=== PATIENT | female | born 1930 | race Caucasian/White ===

== ENCOUNTER 2019-05-17 10:04 | Inpatient (IN) ==
[2019-05-17] MEDS ORDERED: POLYETHYLENE GLYCOL POWDER 17 GM PACK PO PRN (13:21)
[2019-05-17 13:23] LABS: Basophils % 0.1 % (0.0-0.8); Hematocrit 37.3 VOL% (35.7-47.0); Hemoglobin 11.6 GM/DL (12.0-16.0); Immature Granulocytes % 0.7 %; Lymphocytes # 1.3 10*3/uL (1.4-4.0); Lymphocytes % 9.1 % (21.3-54.2); Mean Corpuscular HGB Conc 31.1 GM/DL (32-36); Mean Corpuscular Volume 97.9 FL (87-102); Mean Platelet Volume 12.3 FL (9.6-12.0); Monocytes % 6.3 % (1.7-12.7); Neutrophils % 83.8 % (38.7-73.9); Platelet Count 333 T/CUMM (130-400); Red Blood Count 3.81 MC/CUMM (3.8-5.5); Red Cell Distribution Width 13.2 % (9.3-17.3)
[2019-05-17 13:44] LABS: Albumin 3.1 G/DL (3.4-5.0); Bilirubin,Total 0.4 MG/DL (0.2-1.0); Calcium 9.8 MG/DL (8.5-10.1); Osmolality,Calculated 298.6 MOS/KG (273-304); Total Protein 8.6 G/DL (6.4-8.3)
[2019-05-17 14:08] LABS: ABG Base Excess 6.8 MMOL/L (-2.5-2.5); ABG HCO3 30.6 MMOL/L (20-26); ABG Oxygen Saturation 94.3 % (95-100); ABG PCO2 46.1 MM HG (35-48); ABG PH 7.448 (7.35-7.45); ABG PO2 69.6 MM HG (80-95); ABG TCO2 28.3 MMOL/L (23-27); Allen Test Positive; Pt O2 Delivery Device Venturi Mask
[2019-05-17] MEDS ORDERED: ALBUTEROL/IPRATROPIUM 3 ML NEB RESP TX SCH (15:00)
[2019-05-17] MEDS ORDERED: ALBUTEROL/IPRATROPIUM 3 ML NEB RESP TX PRN (15:03)
[2019-05-17] MEDS: RANITIDINE 150 MG TABLET PO SCH ×2 (15:05→21:32)
[2019-05-17] MEDS ORDERED: cefTRIAXone 1,000 MG in SYRINGE 1 EACH IV SCH (15:30)
[2019-05-17] MEDS ORDERED: LACTATED RINGERS 1,000 ML IV SCH (16:30)
[2019-05-17] MEDS: AZITHROMYCIN INJ 500 MG in SODIUM CHLORIDE 0.9% 250 ML IV SCH (16:41)
[2019-05-17 17:18] LABS: Apearance,Urine Slightly Hazy (Clear); Bilirubin,Urine Negative (Negative); Blood, Urine Moderate mg/dL (Negative); Glucose,Urine (UA) Negative (Negative); Hyaline Casts,Urine 14 /LPF (0-3); Ketones,Urine Negative (Negative); Mucus,Urine Occasional /LPF (Occasional); Nitrite,Urine Negative (Negative); Protein,Urine 30 MG/DL; RBC,Urine 5 /HPF (0-4); Squamous Epithelial Cell,Urine Occasional /HPF (0-10); Urine Color Yellow (Yellow); Urine Specific Gravity 1.011 (1.001-1.035); Urine Urobilinogen < 2.0 EU/DL (0.2-1.0)
[2019-05-17] MEDS ORDERED: VANCOMYCIN INJ 750 MG in SODIUM CHLORIDE 0.9% 250 ML IV SCH (18:00)
[2019-05-17] MEDS: MEROPENEM 500 MG in SODIUM CHLORIDE 0.9% 100 ML IV SCH (18:18)
[2019-05-17] MEDS: ALBUTEROL/IPRATROPIUM 3 ML NEB RESP TX SCH (20:42)
[2019-05-17] MEDS: carvediloL 12.5 MG TABLET PO SCH (21:31)
[2019-05-17] MEDS: POLYCARBOPHIL 625 MG TABLET PO SCH (21:32)
[2019-05-17] MEDS: LATANOPROST 0.005% OPH SOLN 2.5 ML BOTTLE BOTH EYES SCH (21:32)
[2019-05-18] MEDS: ALBUTEROL/IPRATROPIUM 3 ML NEB RESP TX SCH ×4 (00:05→20:54)
[2019-05-18] MEDS: ACETYLCYSTEINE 20% 800 MG/4 ML VIAL RESP TX SCH ×3 (00:05→14:38)
[2019-05-18] MEDS: MEROPENEM 500 MG in SODIUM CHLORIDE 0.9% 100 ML IV SCH ×3 (01:52→17:55)
[2019-05-18 04:24] LABS: ABG Base Excess 7.3 MMOL/L (-2.5-2.5); ABG HCO3 31.1 MMOL/L (20-26); ABG Oxygen Saturation 95.8 % (95-100); ABG PH 7.395 (7.35-7.45); ABG PO2 80.8 MM HG (80-95); ABG TCO2 30.6 MMOL/L (23-27); Allen Test Positive; Pt O2 Delivery Device Venturi Mask
[2019-05-18 06:23] LABS: Basophils % 0.2 % (0.0-0.8); Eosinophils # 0.2 10*3/uL (0.0-0.87); Eosinophils % 1.7 % (0.00-10.9); Hematocrit 31.9 VOL% (35.7-47.0); Hemoglobin 9.9 GM/DL (12.0-16.0); Immature Granulocytes % 0.8 %; Lymphocytes # 1.1 10*3/uL (1.4-4.0); Lymphocytes % 8.6 % (21.3-54.2); Mean Corpuscular Volume 98.5 FL (87-102); Mean Platelet Volume 12.6 FL (9.6-12.0); Monocytes % 5.8 % (1.7-12.7); Neutrophils % 82.9 % (38.7-73.9); Platelet Count 276 T/CUMM (130-400); Red Blood Count 3.24 MC/CUMM (3.8-5.5); Red Cell Distribution Width 13.2 % (9.3-17.3); White Blood Count 12.7 T/CUMM (4-12)
[2019-05-18 06:51] LABS: Alanine Aminotransferase 39 U/L (13-56); Albumin 2.5 G/DL (3.4-5.0); Alkaline Phosphatase 69 U/L (45-117); Aspartate Amino Transferase 22 U/L (0-37); Bilirubin,Total < 0.39 MG/DL (0.2-1.0); Blood Urea Nitrogen 24 MG/DL (7-18); Calcium 9.1 MG/DL (8.5-10.1); Estimated Glom Filtration Rate 65 ML/MIN; Glucose 124 MG/DL (74-106); Osmolality,Calculated 300.1 MOS/KG (273-304); Total Protein 7.1 G/DL (6.4-8.3)
[2019-05-18] MEDS ORDERED: FENOFIBRATE 145 MG TABLET PO SCH (09:00)
[2019-05-18] MEDS ORDERED: MEMANTINE 5 MG TABLET PO SCH (09:00)
[2019-05-18] MEDS ORDERED: CLOPIDOGREL 75 MG TABLET PO SCH (09:00)
[2019-05-18] MEDS ORDERED: POTASSIUM CHLORIDE 20 MEQ TABLET PO SCH (09:00)
[2019-05-18] MEDS ORDERED: ASPIRIN EC 81 MG TABLET PO SCH (09:00)
[2019-05-18] MEDS ORDERED: FUROSEMIDE 40 MG/4 ML VIAL IV SCH (09:00)
[2019-05-18] MEDS: DEXTROSE 5% 1,000 ML IV SCH ×3 (11:56→23:36)
[2019-05-18] MEDS: POLYCARBOPHIL 625 MG TABLET PO SCH (15:50)
[2019-05-18] MEDS: carvediloL 12.5 MG TABLET PO SCH (15:50)
[2019-05-18] MEDS: PEG PROPYLENE GLYCOL BOTH EYES SCH (15:51)
[2019-05-18] MEDS: RANITIDINE 150 MG TABLET PO SCH (15:51)
[2019-05-18] MEDS: AZITHROMYCIN INJ 500 MG in SODIUM CHLORIDE 0.9% 250 ML IV SCH (16:28)
[2019-05-18] MEDS ORDERED: POTASSIUM CHLORIDE RIDER 10 MEQ in PREMIX 1 EACH IV PRN (17:28)
[2019-05-18] MEDS ORDERED: ENOXAPARIN 60 MG/0.6 ML SYRINGE SUBCUT SCH (17:30)
[2019-05-18] MEDS: METOPROLOL TARTRATE 5 MG/5 ML VIAL IV SCH ×2 (17:56→23:43)
[2019-05-18] MEDS: VANCOMYCIN INJ 750 MG in SODIUM CHLORIDE 0.9% 250 ML IV SCH (18:58)
[2019-05-18] MEDS: LATANOPROST 0.005% OPH SOLN 2.5 ML BOTTLE BOTH EYES SCH (21:16)
[2019-05-19] MEDS: ALBUTEROL/IPRATROPIUM 3 ML NEB RESP TX SCH ×4 (00:39→20:30)
[2019-05-19] MEDS: ACETYLCYSTEINE 20% 800 MG/4 ML VIAL RESP TX SCH ×4 (00:39→15:25)
[2019-05-19] MEDS: MEROPENEM 500 MG in SODIUM CHLORIDE 0.9% 100 ML IV SCH ×3 (01:59→18:35)
[2019-05-19 04:51] LABS: ABG Base Excess 9.6 MMOL/L (-2.5-2.5); ABG HCO3 33.2 MMOL/L (20-26); ABG Oxygen Saturation 92.5 % (95-100); ABG PCO2 48.4 MM HG (35-48); ABG PH 7.464 (7.35-7.45); ABG PO2 62.8 MM HG (80-95); ABG TCO2 31.5 MMOL/L (23-27); Allen Test Positive; Pt O2 Delivery Device Venturi Mask
[2019-05-19 05:13] LABS: Apearance,Urine Slightly Hazy (Clear); Bilirubin,Urine Negative (Negative); Blood, Urine Large mg/dL (Negative); Glucose,Urine (UA) 50 mg/dL (Negative); Ketones,Urine Negative (Negative); Mucus,Urine Occasional /LPF (Occasional); Nitrite,Urine Negative (Negative); Protein,Urine 100 MG/DL; RBC,Urine 4789 /HPF (0-4); Urine Color Red (Yellow); Urine Specific Gravity 1.017 (1.001-1.035)
[2019-05-19 05:15] LABS: Basophils # 0.1 10*3/uL (0.0-0.2); Basophils % 0.7 % (0.0-0.8); Eosinophils # 0.5 10*3/uL (0.0-0.87); Hematocrit 32.8 VOL% (35.7-47.0); Immature Granulocytes Absolute 0.09 #; Lymphocytes # 1.4 10*3/uL (1.4-4.0); Lymphocytes % 15.3 % (21.3-54.2); Mean Corpuscular HGB Conc 30.5 GM/DL (32-36); Mean Corpuscular Volume 99.4 FL (87-102); Mean Platelet Volume 11.9 FL (9.6-12.0); Monocytes % 7.8 % (1.7-12.7); Neutrophils % 70.2 % (38.7-73.9); Platelet Count 311 T/CUMM (130-400); Red Cell Distribution Width 13.1 % (9.3-17.3); White Blood Count 8.9 T/CUMM (4-12)
[2019-05-19 05:40] LABS: Bilirubin,Total 0.8 MG/DL (0.2-1.0); Calcium 8.6 MG/DL (8.5-10.1); Osmolality,Calculated 281.5 MOS/KG (273-304); Total Protein 7.1 G/DL (6.4-8.3)
[2019-05-19] MEDS: METOPROLOL TARTRATE 5 MG/5 ML VIAL IV SCH ×3 (06:03→18:14)
[2019-05-19 06:16] LABS: Platelet Estimate Normal
[2019-05-19 06:17] LABS: Anisocytosis 1+; Spherocytes 1+
[2019-05-19] MEDS: PEG PROPYLENE GLYCOL BOTH EYES SCH (09:34)
[2019-05-19] MEDS: PANTOPRAZOLE 40 MG VIAL IV SCH (09:35)
[2019-05-19] MEDS: DEXTROSE 5% 1,000 ML IV SCH ×2 (09:47→22:44)
[2019-05-19] MEDS: AZITHROMYCIN INJ 500 MG in SODIUM CHLORIDE 0.9% 250 ML IV SCH (16:30)
[2019-05-19] MEDS: VANCOMYCIN INJ 750 MG in SODIUM CHLORIDE 0.9% 250 ML IV SCH (18:26)
[2019-05-19] MEDS: LATANOPROST 0.005% OPH SOLN 2.5 ML BOTTLE BOTH EYES SCH (20:32)
[2019-05-19] MEDS ORDERED: VANCOMYCIN INJ 750 MG in SODIUM CHLORIDE 0.9% 250 ML IV SCH (21:00)
[2019-05-20] MEDS: ALBUTEROL/IPRATROPIUM 3 ML NEB RESP TX SCH ×4 (00:45→18:42)
[2019-05-20] MEDS: ACETYLCYSTEINE 20% 800 MG/4 ML VIAL RESP TX SCH ×4 (00:45→18:42)
[2019-05-20] MEDS: METOPROLOL TARTRATE 5 MG/5 ML VIAL IV SCH ×3 (01:25→12:35)
[2019-05-20] MEDS: MEROPENEM 500 MG in SODIUM CHLORIDE 0.9% 100 ML IV SCH ×3 (02:08→17:53)
[2019-05-20 04:34] LABS: ABG Base Excess 6.9 MMOL/L (-2.5-2.5); ABG HCO3 31.5 MMOL/L (20-26); ABG PCO2 44.9 MM HG (35-48); ABG PH 7.464 (7.35-7.45); ABG TCO2 32.9 MMOL/L (23-27); Allen Test Positive; Pt O2 Delivery Device Venturi Mask
[2019-05-20] MEDS: PANTOPRAZOLE 40 MG VIAL IV SCH (09:17)
[2019-05-20] MEDS: DEXTROSE 5% 1,000 ML IV SCH ×2 (09:21→21:44)
[2019-05-20] MEDS: PEG PROPYLENE GLYCOL BOTH EYES SCH (09:24)
[2019-05-20] MEDS ORDERED: hydrALAZINE 20 MG/1 ML VIAL IV PRN (16:13)
[2019-05-20] MEDS: AZITHROMYCIN INJ 500 MG in SODIUM CHLORIDE 0.9% 250 ML IV SCH (16:48)
[2019-05-20] MEDS: carvediloL 12.5 MG TABLET PO SCH (21:03)
[2019-05-20] MEDS: LATANOPROST 0.005% OPH SOLN 2.5 ML BOTTLE BOTH EYES SCH (21:04)
[2019-05-21] MEDS: ALBUTEROL/IPRATROPIUM 3 ML NEB RESP TX SCH ×3 (00:48→13:39)
[2019-05-21] MEDS: MEROPENEM 500 MG in SODIUM CHLORIDE 0.9% 100 ML IV SCH (01:35)
[2019-05-21 06:02] LABS: Basophils # 0.1 10*3/uL (0.0-0.2); Basophils % 0.5 % (0.0-0.8); Eosinophils # 0.3 10*3/uL (0.0-0.87); Eosinophils % 2.8 % (0.00-10.9); Hematocrit 36.4 VOL% (35.7-47.0); Hemoglobin 11.8 GM/DL (12.0-16.0); Immature Granulocytes Absolute 0.32 #; Lymphocytes # 1.5 10*3/uL (1.4-4.0); Lymphocytes % 14.2 % (21.3-54.2); Mean Corpuscular HGB Conc 32.4 GM/DL (32-36); Mean Corpuscular Volume 94.5 FL (87-102); Mean Platelet Volume 11.3 FL (9.6-12.0); Monocytes % 8.3 % (1.7-12.7); Neutrophils % 71.2 % (38.7-73.9); Platelet Count 349 T/CUMM (130-400); Red Blood Count 3.85 MC/CUMM (3.8-5.5); Red Cell Distribution Width 12.3 % (9.3-17.3); White Blood Count 10.6 T/CUMM (4-12)
[2019-05-21 06:28] LABS: Osmolality,Calculated 276.5 MOS/KG (273-304)
[2019-05-21] MEDS: ACETYLCYSTEINE 20% 800 MG/4 ML VIAL RESP TX SCH (07:42)
[2019-05-21] MEDS ORDERED: PANTOPRAZOLE 40 MG TABLET PO SCH (09:00)
[2019-05-21] MEDS: carvediloL 12.5 MG TABLET PO SCH (09:24)
[2019-05-21] MEDS: POTASSIUM CHLORIDE 20 MEQ TABLET PO PRN ×4 (09:24→15:37)
[2019-05-21] MEDS: PEG PROPYLENE GLYCOL BOTH EYES SCH (09:35)
[2019-05-21] MEDS ORDERED: CEFEPIME 1,000 MG in SODIUM CHLORIDE 0.9% 100 ML IV SCH (10:00)
[2019-05-21] MEDS: DEXTROSE 5% 1,000 ML IV SCH (13:10)
[2019-05-21] MEDS: AZITHROMYCIN INJ 500 MG in SODIUM CHLORIDE 0.9% 250 ML IV SCH (15:43)
[2019-05-21 16:21] VITALS: BP 143/86
[2019-05-21] MEDS ORDERED: AMOXICILLIN/CLAV 875 MG TABLET PO SCH (21:00)
[2019-05-21] MEDS ORDERED: LINEZOLID 600 MG TABLET PO SCH (21:00)
[2019-05-21] MEDS ORDERED: CEFDINIR 300 MG CAPSULE PO SCH (21:00)
== END 2019-05-21 17:50 | DRG 193 ==
LOC: SUATTDRO 11:46 → N.CC 11:46 → N.TELES 05-19 16:51
PROVIDERS: ADMIT Internal Medicine; ATTEND Internal Medicine

== ENCOUNTER 2019-05-22 23:43 | Inpatient (IN) ==
[2019-05-23] MEDS ORDERED: NICOTINE 21 MG/24 HR PATCH TRANSDERM PRN (02:18)
[2019-05-23] MEDS ORDERED: guaiFENesin/DM ER 600-30 MG TABLET PO PRN (02:18)
[2019-05-23] MEDS ORDERED: ACETAMINOPHEN 325 MG TABLET PO PRN (02:18)
[2019-05-23] MEDS ORDERED: diphenhydrAMINE CAP 25 MG CAPSULE PO PRN (02:18)
[2019-05-23] MEDS ORDERED: ONDANSETRON 4 MG/2 ML VIAL IV PRN (02:18)
[2019-05-23] MEDS ORDERED: FUROSEMIDE 40 MG/4 ML VIAL IV ONE (02:18)
[2019-05-23] MEDS ORDERED: MORPHINE 4 MG/1 ML VIAL IV PRN (02:18)
[2019-05-23] MEDS ORDERED: FUROSEMIDE 40 MG/4 ML VIAL ONE (02:41)
[2019-05-23 02:58] LABS: ABG Base Excess 3.2 MMOL/L (-2.5-2.5); ABG HCO3 27.2 MMOL/L (20-26); ABG Oxygen Saturation 96.4 % (95-100); ABG PCO2 46.8 MM HG (35-48); ABG PH 7.396 (7.35-7.45); ABG PO2 85.5 MM HG (80-95); ABG TCO2 25.6 MMOL/L (23-27)
[2019-05-23 03:07] LABS: Basophils % 0.2 % (0.0-0.8); Eosinophils % 0.1 % (0.00-10.9); Hematocrit 34.2 VOL% (35.7-47.0); Hemoglobin 10.7 GM/DL (12.0-16.0); Immature Granulocytes % 0.6 %; Immature Granulocytes Absolute 0.13 #; Lymphocytes # 0.5 10*3/uL (1.4-4.0); Lymphocytes % 2.2 % (21.3-54.2); Mean Corpuscular HGB Conc 31.3 GM/DL (32-36); Mean Corpuscular Volume 97.4 FL (87-102); Mean Platelet Volume 11.3 FL (9.6-12.0); Monocytes % 1.3 % (1.7-12.7); Neutrophils % 95.6 % (38.7-73.9); Platelet Count 383 T/CUMM (130-400); Red Blood Count 3.51 MC/CUMM (3.8-5.5); Red Cell Distribution Width 12.8 % (9.3-17.3); White Blood Count 22.3 T/CUMM (4-12)
[2019-05-23] MEDS: MEROPENEM 500 MG in SODIUM CHLORIDE 0.9% 100 ML IV SCH ×4 (03:12→21:32)
[2019-05-23 03:21] LABS: Apearance,Urine CLEAR (Clear); Bilirubin,Urine Negative (Negative); Blood, Urine Moderate mg/dL (Negative); Glucose,Urine (UA) 50 mg/dL (Negative); Hyaline Casts,Urine 8 /LPF (0-3); Ketones,Urine Negative (Negative); Mucus,Urine Occasional /LPF (Occasional); Nitrite,Urine Negative (Negative); Protein,Urine 30 MG/DL; RBC,Urine 42 /HPF (0-4); Squamous Epithelial Cell,Urine Occasional /HPF (0-10); Urine Color Yellow (Yellow); Urine Specific Gravity 1.016 (1.001-1.035); Urine Urobilinogen < 2.0 EU/DL (0.2-1.0); WBC,Urine 3 /HPF (0-6)
[2019-05-23 03:29] LABS: Alanine Aminotransferase 22 U/L (13-56); Albumin 2.4 G/DL (3.4-5.0); Alkaline Phosphatase 85 U/L (45-117); Aspartate Amino Transferase 17 U/L (0-37); Bilirubin,Total < 0.39 MG/DL (0.2-1.0); Blood Urea Nitrogen 21 MG/DL (7-18); Calcium 8.7 MG/DL (8.5-10.1); Estimated Glom Filtration Rate 46 ML/MIN; Glucose 219 MG/DL (74-106); Osmolality,Calculated 290.3 MOS/KG (273-304); Total Protein 7.2 G/DL (6.4-8.3)
[2019-05-23 04:04] LABS: Band Neutrophils 1 % (0-10); Lymphocytes 3 % (20-55); Segmented Neutrophils 96 % (50-85)
[2019-05-23 04:05] LABS: Platelet Estimate Normal; Total Cells Counted 100
[2019-05-23] MEDS: AZITHROMYCIN INJ 500 MG in SODIUM CHLORIDE 0.9% 250 ML IV SCH (04:42)
[2019-05-23] MEDS ORDERED: VANCOMYCIN INJ 750 MG in SODIUM CHLORIDE 0.9% 250 ML IV SCH (05:00)
[2019-05-23] MEDS ORDERED: DEXTROSE 10% 250 ML BAG IV PRN (05:37)
[2019-05-23] MEDS ORDERED: GLUCAGON 1 MG VIAL IM PRN (05:37)
[2019-05-23] MEDS: ALBUTEROL/IPRATROPIUM 3 ML NEB RESP TX SCH ×3 (08:02→19:20)
[2019-05-23] MEDS: INSULIN REGULAR 100 UNIT/ML SUBCUT SCH ×4 (08:20→20:42)
[2019-05-23] MEDS: carvediloL 12.5 MG TABLET PO SCH (21:33)
[2019-05-24] MEDS: ALBUTEROL/IPRATROPIUM 3 ML NEB RESP TX SCH ×4 (00:40→19:05)
[2019-05-24] MEDS: MEROPENEM 500 MG in SODIUM CHLORIDE 0.9% 100 ML IV SCH ×4 (03:07→20:17)
[2019-05-24] MEDS: AZITHROMYCIN INJ 500 MG in SODIUM CHLORIDE 0.9% 250 ML IV SCH (04:07)
[2019-05-24 05:17] LABS: Calcium 8.7 MG/DL (8.5-10.1); Osmolality,Calculated 297.3 MOS/KG (273-304)
[2019-05-24] MEDS: VANCOMYCIN INJ 750 MG in SODIUM CHLORIDE 0.9% 250 ML IV SCH (06:16)
[2019-05-24] MEDS: INSULIN REGULAR 100 UNIT/ML SUBCUT SCH ×4 (09:22→20:37)
[2019-05-24] MEDS: carvediloL 12.5 MG TABLET PO SCH ×2 (09:27→20:36)
[2019-05-24] MEDS: CLOPIDOGREL 75 MG TABLET PO SCH (09:28)
[2019-05-24] MEDS: LACTATED RINGERS 1,000 ML IV SCH (12:09)
[2019-05-25] MEDS: ALBUTEROL/IPRATROPIUM 3 ML NEB RESP TX SCH ×4 (00:48→19:13)
[2019-05-25] MEDS: MEROPENEM 500 MG in SODIUM CHLORIDE 0.9% 100 ML IV SCH ×4 (03:11→20:16)
[2019-05-25] MEDS: LACTATED RINGERS 1,000 ML IV SCH (03:12)
[2019-05-25] MEDS: VANCOMYCIN INJ 750 MG in SODIUM CHLORIDE 0.9% 250 ML IV SCH (05:34)
[2019-05-25 07:19] LABS: Basophils % 0.3 % (0.0-0.8); Eosinophils # 0.4 10*3/uL (0.0-0.87); Eosinophils % 2.8 % (0.00-10.9); Hematocrit 30.9 VOL% (35.7-47.0); Hemoglobin 9.4 GM/DL (12.0-16.0); Immature Granulocytes % 0.7 %; Immature Granulocytes Absolute 0.09 #; Lymphocytes # 1.9 10*3/uL (1.4-4.0); Lymphocytes % 14.8 % (21.3-54.2); Mean Corpuscular HGB Conc 30.4 GM/DL (32-36); Mean Platelet Volume 11.6 FL (9.6-12.0); Monocytes % 5.3 % (1.7-12.7); Neutrophils % 76.1 % (38.7-73.9); Platelet Count 352 T/CUMM (130-400); Red Blood Count 3.12 MC/CUMM (3.8-5.5); Red Cell Distribution Width 12.7 % (9.3-17.3); White Blood Count 12.7 T/CUMM (4-12)
[2019-05-25 07:46] LABS: Calcium 8.7 MG/DL (8.5-10.1); Osmolality,Calculated 284.8 MOS/KG (273-304)
[2019-05-25] MEDS ORDERED: ALBUTEROL 1.25 MG/3 ML NEB RESP TX PRN (08:47)
[2019-05-25] MEDS ORDERED: FUROSEMIDE 40 MG/4 ML VIAL IV ONE (09:07)
[2019-05-25] MEDS: methylPREDNISolone SOD SUC 40 MG/1 ML VIAL IV SCH ×2 (09:14→17:38)
[2019-05-25] MEDS: carvediloL 12.5 MG TABLET PO SCH ×2 (09:16→20:19)
[2019-05-25] MEDS: INSULIN REGULAR 100 UNIT/ML SUBCUT SCH ×4 (09:16→22:33)
[2019-05-25] MEDS: CLOPIDOGREL 75 MG TABLET PO SCH (09:16)
[2019-05-26] MEDS: ALBUTEROL/IPRATROPIUM 3 ML NEB RESP TX SCH ×4 (00:39→19:22)
[2019-05-26] MEDS: methylPREDNISolone SOD SUC 40 MG/1 ML VIAL IV SCH ×3 (01:15→17:22)
[2019-05-26] MEDS: MEROPENEM 500 MG in SODIUM CHLORIDE 0.9% 100 ML IV SCH ×4 (03:37→20:24)
[2019-05-26] MEDS: VANCOMYCIN INJ 750 MG in SODIUM CHLORIDE 0.9% 250 ML IV SCH ×2 (06:05→17:27)
[2019-05-26 06:34] LABS: Calcium 9.1 MG/DL (8.5-10.1); Osmolality,Calculated 291.1 MOS/KG (273-304)
[2019-05-26] MEDS: carvediloL 12.5 MG TABLET PO SCH ×2 (09:18→21:16)
[2019-05-26] MEDS: INSULIN REGULAR 100 UNIT/ML SUBCUT SCH ×4 (09:18→22:55)
[2019-05-26] MEDS: CLOPIDOGREL 75 MG TABLET PO SCH (09:19)
[2019-05-27] MEDS: methylPREDNISolone SOD SUC 40 MG/1 ML VIAL IV SCH ×2 (01:21→09:11)
[2019-05-27] MEDS: ALBUTEROL/IPRATROPIUM 3 ML NEB RESP TX SCH ×2 (01:45→07:33)
[2019-05-27] MEDS: MEROPENEM 500 MG in SODIUM CHLORIDE 0.9% 100 ML IV SCH ×2 (05:02→09:44)
[2019-05-27] MEDS: VANCOMYCIN INJ 750 MG in SODIUM CHLORIDE 0.9% 250 ML IV SCH (05:39)
[2019-05-27 05:47] LABS: Basophils % 0.2 % (0.0-0.8); Hematocrit 34.6 VOL% (35.7-47.0); Hemoglobin 10.5 GM/DL (12.0-16.0); Immature Granulocytes % 0.7 %; Immature Granulocytes Absolute 0.04 #; Lymphocytes # 0.6 10*3/uL (1.4-4.0); Lymphocytes % 10.3 % (21.3-54.2); Mean Corpuscular HGB Conc 30.3 GM/DL (32-36); Mean Corpuscular Volume 97.7 FL (87-102); Mean Platelet Volume 11.1 FL (9.6-12.0); Neutrophils % 86.8 % (38.7-73.9); Platelet Count 426 T/CUMM (130-400); Red Blood Count 3.54 MC/CUMM (3.8-5.5); Red Cell Distribution Width 12.1 % (9.3-17.3); White Blood Count 5.6 T/CUMM (4-12)
[2019-05-27 06:12] LABS: Calcium 9.1 MG/DL (8.5-10.1); Osmolality,Calculated 296.7 MOS/KG (273-304)
[2019-05-27 08:03] VITALS: BP 158/55
[2019-05-27] MEDS: INSULIN REGULAR 100 UNIT/ML SUBCUT SCH (08:16)
[2019-05-27] MEDS: CLOPIDOGREL 75 MG TABLET PO SCH (08:21)
[2019-05-27] MEDS: carvediloL 12.5 MG TABLET PO SCH (08:21)
== END 2019-05-27 11:35 | DRG 306 ==
LOC: N.ICU 05-23 01:39 → SUATTDRO 05-23 01:39 → N.2E 05-23 14:32
PROVIDERS: ADMIT Internal Medicine; ATTEND Family Medicine